=== PATIENT | male | born 1980 | race Caucasian/White ===

== ENCOUNTER → 2018-10-30 15:59 | Outpatient (CLI) | payer OTHER, SELFPAY ==
--- NOTE | 2018-10-30 | DI.RAD.S_ITS ---
PROCEDURE: XR FOOT LT MIN 3V INDICATIONS: left foot pain TECHNIQUE: 3 views of the foot were acquired. COMPARISON: None. FINDINGS: Bones: No fractures or dislocations. No suspicious bony lesions. Soft tissues: No tibiotalar joint effusion. Achilles tendon appears normal. IMPRESSION: Source of pain is not seen. Dictated by: Fermín Vital M.D. on 10/30/2018 at 17:05 Approved by: Fermín Vital M.D. on 10/30/2018 at 17:05
== END ==
PROVIDERS: PCP Internal Medicine; Visit Provider Family Medicine
DX: M79.672 Pain in left foot (principal)
CPT/HCPCS: 73630

== ENCOUNTER → 2021-01-23 15:04 | Outpatient (CLI) | payer OTHER, SELFPAY ==
[2021-01-23 16:25] LABS: COVID19 -Nasal RAPID Negative (Negative)
== END ==
PROVIDERS: PCP Internal Medicine; Visit Provider Nurse Practitioner
DX: Z20.822 Contact with and (suspected) exposure to COVID-19 (principal)
CPT/HCPCS: 87635

== ENCOUNTER → 2022-01-25 14:06 | Outpatient (CLI) | payer OTHER, SELFPAY ==
--- NOTE | 2022-01-25 14:11 | DI.RAD.S_ITS ---
PROCEDURE: XR TIBIA FIBULA LT 2V INDICATIONS: LEFT KNEE PAIN TECHNIQUE: 2 views of the tibia and fibula were acquired. COMPARISON: None. FINDINGS: Bones: No fractures or dislocations. No suspicious bony lesions. Soft tissues: No suspicious soft tissue calcifications or masses. IMPRESSION: Negative left tibia and fibula. Dictated by: Xu Whitfield M.D. on 01/25/2022 at 14:51 Approved by: Xu Whitfield M.D. on 01/25/2022 at 14:52
--- NOTE | 2022-01-25 14:11 | DI.RAD.S_ITS ---
PROCEDURE: XR KNEE LT 3V INDICATIONS: LEFT KNEE PAIN TECHNIQUE: 3 views of the knee were acquired. COMPARISON: None. FINDINGS: Bones: No fractures or dislocations. No suspicious bony lesions. Soft tissues: No joint effusion. No suspicious soft tissue calcifications. IMPRESSION: Negative left knee. Dictated by: Xu Whitfield M.D. on 01/25/2022 at 14:50 Approved by: Xu Whitfield M.D. on 01/25/2022 at 14:51
== END ==
PROVIDERS: PCP Family Medicine; Referring Provider Family Medicine; Visit Provider Family Medicine
DX: M25.562 Pain in left knee (principal)
CPT/HCPCS: 73562; 73590

== ENCOUNTER → 2022-10-04 16:34 | Outpatient (CLI) | payer OTHER, SELFPAY ==
--- NOTE | 2022-10-04 16:37 | DI.US.S_ITS ---
PROCEDURE: US ABDOMEN COMPLETE INDICATIONS: WEIGHT LOSS / HEPATITIS TECHNIQUE: Real-time scanning was performed of the abdominal and retroperitoneal organs, with image documentation. COMPARISON: [facility], US, ABDOMEN COMPLETE, 06/15/2017, 16:40. FINDINGS: Liver: The liver is at the upper limits of normal in size with enlarged caudate lobe and right hepatic lobe. Hepatic echotexture is moderately heterogeneous. No focal intrahepatic lesions identified. There is normal hepatopetal flow of the main portal vein. Gallbladder: There is mobile gallbladder sludge. No gallstones visualized. No gallbladder wall thickening. No pericholecystic fluid. Negative sonographic Regalado sign. Biliary ducts: Intrahepatic bile ducts are non-dilated. Extrahepatic bile duct caliber measures 4 mm. Normal is 6-7 mm or less in diameter, or 10 mm or less post-cholecystectomy. Pancreas: Pancreas is not well visualized secondary to moderate overlying bowel gas. However, there is a nonvascular hypoechoic lesion near the pancreatic head measuring 2.2 x 1.6 x 1.4 cm in size. Spleen: There is splenomegaly. Spleen measures 15.5 cm in length. Kidneys: Bilateral kidneys are normal in size with heterogeneous parenchymal echotexture. Right kidney measures 10.7 cm long and the left kidney measures 11.9 cm in length. No hydronephrosis or nephrolithiasis. No solid masses. Aorta: Visualized aorta is normal in caliber at less than 3 cm. Iliacs: Proximal common iliac arteries are not well visualized secondary to overlying bowel gas. IVC: Intrahepatic inferior vena cava is patent. Miscellaneous: There is a trace amount of ascites in the right upper quadrant. IMPRESSION: 1. Prominent size of the liver with very heterogeneous and increased parenchymal echotexture with enlargement of the caudate lobe and right hepatic lobe. No focal intrahepatic abnormality seen. There is also splenomegaly. Findings may represent possible hepatitis versus early cirrhosis/portal hypertension. Concurrent hepatic steatosis may have a similar appearance. 2. Possible 2.2 x 1.6 x 1.4 cm nonvascular hypoechoic lesion in the pancreatic head which may represent a mass. Recommend further evaluation with contrast enhanced MRI of the abdomen using pancreatic mass protocol. 3. Trace ascites. 4. Heterogeneous appearance of the renal parenchyma without evidence for obstructive uropathy. Findings are nonspecific but may represent sequela of chronic medical renal disease. Recommend clinical and laboratory correlation. Dictated by: Marco A Abraham M.D. on 10/05/2022 at 13:53 Approved by: Marco A Abraham M.D. on 10/05/2022 at 14:10
== END ==
PROVIDERS: PCP Family Medicine; Referring Provider Family Medicine; Visit Provider Family Medicine
DX: K75.9 Inflammatory liver disease, unspecified (principal); K82.8 Other specified diseases of gallbladder; R63.4 Abnormal weight loss; R16.1 Splenomegaly, not elsewhere classified
CPT/HCPCS: 76700

== ENCOUNTER → 2022-10-14 13:41 | Outpatient (CLI) | payer OTHER, SELFPAY ==
--- NOTE | 2022-10-14 | DI.MRI.S_ITS ---
PROCEDURE: MR AB PANCREATIC/MRCP PROTOCOL INDICATIONS: Other specified diseases of pancreas TECHNIQUE: Coronal HASTE through the abdomen, axial 2-D FLASH in- and [id number], and breath-hold T2 FSE with fat saturation through the biliary system and pancreas. Oblique coronal and axial thin-slice HASTE, radial thick-slab HASTE centered on the extrahepatic bile ducts. Intravenous secretin: Not requested. COMPARISON: [facility], US, US ABDOMEN COMPLETE, 10/04/2022, 17:06. FINDINGS: Image quality: Excellent. Liver: Macro lobulated liver contour. Heterogeneous signal dropout on the out of phase sequence, consistent with superimposed steatosis. Gallbladder and biliary tree: Diffuse gallbladder wall thickening. No intrahepatic or extrahepatic biliary dilation. Spleen: Enlarged. Pancreas: No ductal dilation. No solid mass. No cystic mass. Adrenal glands: No adrenal nodules. Kidneys: No hydronephrosis. No solid mass. No complex renal cysts which requires follow-up. . Nodes and vessels: No retroperitoneal or mesenteric adenopathy by size criteria. Aorta and inferior vena cava are normal in size. Prominent portacaval lymph nodes. Portosystemic collaterals. Bowel and peritoneum: Unenhanced bowel loops are normal in caliber. Small volume ascites. Lung bases: No basal pleural effusions. Heart size is normal. Bones and soft tissues: No ventral hernias. Bone marrow is of normal overall signal. IMPRESSION: No pancreatic mass. Findings on ultrasound could correspond to the prominent periportal lymph nodes. Cirrhosis with portal hypertension. Dictated by: Anil Johnston M.D. on 10/14/2022 at 15:20 Approved by: Anil Johnston M.D. on 10/14/2022 at 15:33
== END ==
PROVIDERS: PCP Family Medicine; Referring Provider Family Medicine; Visit Provider Family Medicine
DX: K86.89 Other specified diseases of pancreas (principal); K76.6 Portal hypertension; K74.60 Unspecified cirrhosis of liver; R16.1 Splenomegaly, not elsewhere classified; R10.9 Unspecified abdominal pain; R16.0 Hepatomegaly, not elsewhere classified; R63.4 Abnormal weight loss
CPT/HCPCS: 74183; A9579

== ENCOUNTER → 2022-11-12 14:55 | Outpatient (ROUT) | payer OTHER, SELFPAY ==
[2022-11-12 15:09] LABS: INR 1.8 (0.9-1.3); Prothrombin Time 20.5 SECONDS (10.1-12.7)
== END ==
PROVIDERS: PCP Family Medicine; Visit Provider Physician Assistant
DX: R74.8 Abnormal levels of other serum enzymes (principal); R93.2 Abnormal findings on diagnostic imaging of liver and biliary tract
CPT/HCPCS: 85610

== ENCOUNTER → 2023-04-01 07:12 | Outpatient (CLI) | payer OTHER, SELFPAY ==
--- NOTE | 2023-04-01 | DI.MRI.S_ITS ---
PROCEDURE: MR HEAD/BRAIN WO CON INDICATIONS: Nontraumatic intracerebral hemorrhage, unspecified TECHNIQUE: Noncontrast axial T1 spin echo, axial T2 fast spin echo, sagittal and axial FLAIR, coronal T2 fast spin echo, axial gradient echo, axial diffusion and ADC through the brain. COMPARISON: [facility], CT, CT HEAD WITHOUT CONTRAST, 03/04/2023, 13:00. FINDINGS: Image quality: Excellent. CSF Spaces: Basal cisterns are patent. No extra-axial fluid collections. Ventricles are normal in size and shape. Brain: The largest right frontal area of hemorrhage measures 4.6 x 2.4 x 3.9 centimeters, previously 5.0 x 2.6 x 4.4 centimeters. This cavity is predominantly cystic internally with hemosiderin lining, likely representing evolution of blood products. Redemonstration of surrounding edema. The smaller focus of hemorrhage within the right frontal lobe measures 1.1 x 0.6 x 1.2 centimeters, previously 2.0 x 1.1 x 1.7 centimeters. There is minimal surrounding edema, decreased from prior. The left cerebellar hemisphere hemorrhage measures 2.5 x 0.7 x 1.2 centimeters, previously 2.7 x 1.5 x 1.8 centimeters. There is decreased surrounding edema. All these lesions are predominantly cystic with a hemosiderin rim. Few scattered foci of T2/FLAIR hyperintense signal within the white matter is nonspecific and likely age-appropriate. Bhagat/white matter interface is normal. Brainstem appears normal. Diffusion-weighted images demonstrate no acute infarct. No chronic ischemic insults. Normal intravascular flow voids are present. Skull and face: Calvarium has normal marrow signal. Orbits appear normal. Sinuses: Mild diffuse paranasal sinus mucosal thickening. The mastoids are clear. IMPRESSION: Decreased size of intraparenchymal hemorrhages as described above with decreased surrounding edema. These areas are now predominantly cystic with hemosiderin rim. Findings likely represent evolving blood products. Mild subfalcine herniation related to the largest right frontal hemorrhage is similar to prior. No definite underlying mass is seen, however evaluation is limited without the use of intravenous contrast. Consider further evaluation with MRI of the brain with and without contrast once the hemorrhages are further resolved. No new acute intracranial abnormalities. No new hemorrhages. Dictated by: Eugenio Baxter M.D. on 04/01/2023 at 9:31 Approved by: Eugenio Baxter M.D. on 04/01/2023 at 9:44
== END ==
LOC: MRI 07:13
PROVIDERS: PCP Family Medicine; Referring Provider Family Medicine; Visit Provider Family Medicine
DX: I61.9 Nontraumatic intracerebral hemorrhage, unspecified (principal)
CPT/HCPCS: 70551

== ENCOUNTER → 2023-04-11 14:30 | Outpatient (CLI) | payer OTHER, SELFPAY ==
--- NOTE | 2023-04-11 | DI.RAD.S_ITS ---
PROCEDURE: XR ELBOW RT MIN 3V INDICATIONS: right elbow pain TECHNIQUE: 3 views of the elbow were acquired. COMPARISON: None. FINDINGS: Bones: No fractures or dislocations. No suspicious bony lesions. Soft tissues: No elbow joint effusion. No suspicious soft tissue calcifications. IMPRESSION: No acute bony abnormality or significant joint effusion. Dictated by: Anil Johnston M.D. on 04/11/2023 at 16:22 Approved by: Anil Johnston M.D. on 04/11/2023 at 16:22
== END ==
LOC: RAD 14:39
PROVIDERS: PCP Family Medicine; Referring Provider Family Medicine; Visit Provider Family Medicine
DX: M25.521 Pain in right elbow (principal)
CPT/HCPCS: 73080

== ENCOUNTER 2024-01-18 19:13 | Emergency (ER) | payer OTHER, SELFPAY ==
--- NOTE | 2024-01-18 19:15 | DI.RAD.S_ITS ---
PROCEDURE: XR ANKLE RT MIN 3V INDICATIONS: R ankle injuri, pain TECHNIQUE: 3 views of the ankle were acquired. COMPARISON: [facility], CR, XR TIBIA FIBULA LT 2V, 01/25/2022, 15:34. FINDINGS: Bones: Minimally displaced oblique intra-articular fracture of the medial malleolus. There is a small minimally displaced intra-articular fracture of the posterior malleolus. Minimally displaced oblique fracture of the distal fibula at the metadiaphysis. Ossification along the lateral aspect of the distal tibial metaphysis may be related to remote prior trauma versus osteochondroma. Soft tissues: Mild soft tissue edema surrounding the ankle. IMPRESSION: Minimally displaced trimalleolar fractures of the distal tibia and fibula. Approved by: Ivan Ahuja M.D. on 01/18/2024 at 19:43
[2024-01-18 19:23] VITALS: BP 154/78; PULSE 99; RESP 18; TEMP 37; O2SAT 99; BMI 23.6
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
[2024-01-18 19:30] VITALS: PULSE 95; O2SAT 99
[2024-01-18] MEDS: HYDROMORPHONE 1 MG INJ 0.5 MG IM (19:55)
[2024-01-18 20:00] VITALS: PULSE 89; RESP 18; O2SAT 100
[2024-01-18 20:22] VITALS: BP 143/75; PULSE 91; RESP 18; O2SAT 99
[2024-01-18] MEDS: HYDROCODONE/ACET 5/325 PREPACK 1 BOTTLE MISC (20:38)
== END 2024-01-18 20:49 | disposition home or self-care (01) ==
PROVIDERS: Emergency Provider Emergency Medicine; PCP Family Medicine
DX: S82.851A Displaced trimalleolar fracture of right lower leg, initial encounter for closed fracture (principal); V03.90XA Pedestrian on foot injured in collision with car, pick-up truck or van, unspecified whether traffic or nontraffic accident, initial encounter
CPT/HCPCS: 73610; 96372; 99283; J1171

== ENCOUNTER → 2024-01-20 09:01 | Outpatient (CLI) | payer OTHER, SELFPAY ==
[2024-01-20 10:03] LABS: INR 1.7 (0.9-1.3); Prothrombin Time 19.1 SECONDS (9.4-12.5)
[2024-01-20 10:06] LABS: PTT Partial Thromboplastin Tim 48 SECONDS (25.1-36.5)
[2024-01-20 12:35] LABS: Add Manual Diff / Slide Review NO; Basophils Absolute Auto 0 /uL (0-100); Basophils Percent Auto 0.9 % (0-2); Eosinophils Absolute Auto 0 /uL (0-450); Eosinophils Percent Auto 1.1 % (2-4); Hematocrit 34.5 % (41-53); Hemoglobin 11.6 g/dL (13.5-17.5); Lymphocytes Absolute Auto 900 /uL (1100-4500); Lymphocytes Percent Auto 32.3 % (25-40); Mean Corpuscular HGB Conc 33.5 % (30-36); Mean Corpuscular Hemoglobin 27.6 PG (26-34); Mean Corpuscular Volume 82.3 fL (80-100); Monocytes Absolute Auto 400 /uL (0-900); Monocytes Percent Auto 14.6 % (3-14); Neutrophils Absolute Auto 1400 /uL (1500-7000); Neutrophils Percent Auto 51.1 % (50-75); Platelet Count 71 X10^3/uL (150-400); Red Blood Cell Count 4.19 X10^6/uL (4.5-5.9); Red Cell Distribution Width 15.1 % (11.6-14.8); White Blood Cell Count 2.8 X10^3/uL (4.5-11.0)
== END ==
PROVIDERS: PCP Family Medicine; Referring Provider Orthopaedic Surgery; Visit Provider Orthopaedic Surgery
DX: D69.6 Thrombocytopenia, unspecified (principal); D68.00 Von Willebrand disease, unspecified
CPT/HCPCS: 36415; 85025; 85610; 85730; 86900; 86901

== ENCOUNTER 2024-01-20 09:54 | Emergency (ER) | payer OTHER, SELFPAY ==
[2024-01-20 10:14] VITALS: BP 148/65; PULSE 94; RESP 17; TEMP 36.6; O2SAT 100; BMI 23.6
--- NOTE | 2024-01-20 10:59 | ED_ITS ---
HPI - Recheck/Abnormal Lab/Rx <Monika Almeida PA-C - Last Filed: 01/20/24 13:41> General Chief Complaint: Recheck/Abnormal Lab/Rx Stated Complaint: foot fracture needs pain meds refill Time Seen by Provider: 01/20/24 10:42 Source: patient Mode of arrival: Ambulatory History of Present Illness HPI narrative: Mr. Gallardo is a pleasant 43-year-old male with a past medical history of right ankle trimalleolar fracture of the distal tibia and fibula on 01/18/2024 who presents for continuing pain in his right ankle. Patient has surgery scheduled on Tuesday. He was prescribed 14 hydrocodone-acetaminophen 5-325mg tablets and he still has 8 remaining but he reports taking 1 tablet every 6 hours has not been controlling his pain. He wanted to discuss additional pain medication in order to get him through his surgery on Tuesday. He denies any new injuries, any knee pain any fevers, chills, shortness of breath or decreased sensation of his foot. Related Data Previous Rx's Medication Instructions Recorded hydrocodone 5 mg-acetaminophen 325 1 tab PO Q6H PRN pain #14 tabs 01/18/24 mg tablet cephalexin 500 mg capsule 500 mg PO TID 7 days #21 caps 01/20/24 hydrocodone 5 mg-acetaminophen 325 1 tab PO Q6H PRN pain #16 tabs 01/20/24 mg tablet Allergies Allergy/AdvReac Type Severity Reaction Status Date / Time No Known Drug Allergies Allergy Verified 01/20/24 10:17 Review of Systems <Monika Almeida PA-C - Last Filed: 01/20/24 13:41> Constitutional Constitutional: Denies chills, Denies fatigue, Denies frequent falls and Denies weakness ENT Ears, Nose, Mouth, and Throat: Denies neck pain Cardiovascular Cardiovascular: Denies chest pain, Denies dyspnea and Denies dyspnea on exertion Respiratory Respiratory: Denies cough, Denies dyspnea and Denies dyspnea on exertion Gastrointestinal Gastrointestinal: Denies nausea and Denies vomiting Musculoskeletal Musculoskeletal: Denies back pain, Denies myalgias, Reports arthralgias (right ankle pain) and Denies neck pain Integumentary/Breasts Skin/Breast: Denies rash Neurologic Neurologic: Denies frequent falls and Denies weakness Endocrine Endocrine: Denies fatigue Patient History <Monika Almeida PA-C - Last Filed: 01/20/24 13:41> Social History Smoking Status: Never smoker Smoking Status: Never smoker Substance Use Type: does not use Exam <Monika Almeida PA-C - Last Filed: 01/20/24 13:41> Initial Vital Signs Initial Vital Signs: Vital Signs Temperature 98 F 01/20/24 10:14 Pulse Rate 94 H 01/20/24 10:14 Respiratory Rate 17 01/20/24 10:14 Blood Pressure 148/65 H 01/20/24 10:14 Pulse Oximetry 100 01/20/24 10:14 Oxygen Delivery Method Room Air 01/20/24 10:14 Const General: cooperative HENMT Head: normocephalic Neck Neck: normal visual inspection Resp Effort & Inspection: normal respiratory effort, able to speak in complete sentences and no respiratory distress Cardio Rate: regular rate Rhythm: regular rhythm Skin General: No jaundice and No petechiae Other: Small, superficial abrasion on right lateral malleolus. Brisk capillary refill on right foot. Neuro General: patient alert and patient oriented x3 Extrem General: capillary refill normal, no calf tenderness and No calf tenderness Right lower extremity: normal capillary refill Other: Right lower leg splint removed. Compartments soft. Superficial abrasion on right lateral malleolus. Diffuse TTP right ankle. Psych Appearance: well kempt <Camila Melgoza DO - Last Filed: 01/20/24 16:04> Initial Vital Signs Initial Vital Signs: Vital Signs Temperature 98 F 01/20/24 10:14 Pulse Rate 94 H 01/20/24 10:14 Respiratory Rate 17 01/20/24 10:14 Blood Pressure 148/65 H 01/20/24 10:14 Pulse Oximetry 100 01/20/24 10:14 Oxygen Delivery Method Room Air 01/20/24 10:14 Course <Monika Almeida PA-C - Last Filed: 01/20/24 13:41> Vital Signs Vital signs: Vital Signs - 8 hr 01/20/24 10:14 01/20/24 11:39 Temperature 98 F Pulse Rate 94 H 76 Respiratory Rate 17 18 Blood Pressure 148/65 H 127/61 Pulse Oximetry 100 98 Oxygen Delivery Method Room Air Room Air <Camila Melgoza DO - Last Filed: 01/20/24 16:04> Vital Signs Vital signs: Vital Signs - 8 hr 01/20/24 10:14 01/20/24 11:39 Temperature 98 F Pulse Rate 94 H 76 Respiratory Rate 17 18 Blood Pressure 148/65 H 127/61 Pulse Oximetry 100 98 Oxygen Delivery Method Room Air Room Air MDM - Recheck/Abnormal Lab/Rx <Monika Almeida PA-C - Last Filed: 01/20/24 13:41> [facility] Narrative Medical decision making narrative: 43-year-old male with a past medical history of right ankle trimalleolar fracture of the distal tibia and fibula on 01/18/2024 who presents for continuing pain in his right ankle. DDX includes but is not limited to uncontrolled fracture pain, cellulitis, compartment syndrome, etc. On exam patient is in no acute distress, nontoxic appearing, afebrile. Splint removed to evaluate leg. Right lower extremity compartments are soft, distal right toes have brisk capillary refill and sensation intact to light touch. Superficial abrasion on R lat mal. Patient has been taking 5 mg of hydrocodone every 6 hours however his pain has not been controlled. He has 8 pills remaining but was concerned he would not have enough pain medication to get him to a surgery on Tuesday and he was unable to get appointment with his PCP. I discussed multimodal pain management with the patient including incorporating additional Tylenol and ibuprofen. I prescribed him additional hydrocodone 5 mg and we discussed that he can take a total of 10 mg hydrocodone every 6 hours if needed for pain. Discussed risks of narcotic pain medications. Due to superficial abrasion overlying fracture underneath the splint, will treat with Keflex t.i.d. x7 days out of an abundance of caution for potential wound infection. A new splint was applied. Patient is understanding, agreeable to discharge and stable for discharge home with surgery scheduled Tuesday. Strict ED return precautions discussed. Discharge Plan Departure Patient Disposition: Home Clinical Impression: Ankle fracture, right Qualifiers: Encounter type: subsequent encounter Fracture type: closed Fracture healing: with routine healing Qualified Code(s): S82.891D - Other fracture of right lower leg, subsequent encounter for closed fracture with routine healing Ankle pain, right Qualifiers: Chronicity: acute Qualified Code(s): M25.571 - Pain in right ankle and joints of right foot Instructions: DI for Ankle Pain Activity Restrictions/Additional Instructions: Today you were evaluated in the emergency department for continuing right ankle pain. I have prescribed 16 additional tablets of hydrocodone so that you have enough to get to your surgery on Tuesday. If the 5 mg tablet does not improve your pain, you may take an additional 5 mg tablet for a total of 10 mg every 6 hours. It is also appropriate to incorporate additional Tylenol/acetaminophen. You may take a total of 1000 mg of Tylenol every 8 hours. You may also take 600 mg of ibuprofen every 6 hours, however you may want to confirm with your surgeon as this is appropriate prior to her operation on Tuesday. Please continue to rest, ice her ankle, elevate the ankle above the heart. Use your crutches do not bear weight on the ankle. Returns to the emergency depart for any new or worsening symptoms. You have been prescribed a short course of narcotic medications. These are potentially dangerous and addictive medications that should be used carefully. While on these medications you cannot drive or operate heavy machinery. Additionally, you cannot sign legal documents or perform any duties such as this. 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 Please understand that we cannot provide further refills of narcotics or controlled substances through the ED and your pain management will need to be through your Primary Care Provider Prescriptions: New hydrocodone-acetaminophen 5-325 mg tablet 1 tab PO Q6H PRN (Reason: pain) Qty: 16 0RF Rx Instructions: You may take an addition tablet (total 10mg of hydrocodone) every 6 hours as needed for severe pain. cephalexin 500 mg capsule 500 mg PO TID 7 Days Qty: 21 0RF No Action hydrocodone-acetaminophen 5-325 mg tablet 1 tab PO Q6H PRN (Reason: pain) Qty: 14 0RF Referrals: Alex Caruso MD [Primary Care Provider] - Stand Alone Forms: Patient Portal/API/Survey, Work Release Note ED Sign-out <Camila Melgoza DO - Last Filed: 01/20/24 16:04> Cosign ED Attending Cosmargaretature Attestation: I was available for consultation.
[2024-01-20 11:39] VITALS: BP 127/61; PULSE 76; RESP 18; O2SAT 98
--- NOTE | 2024-01-20 12:27 | PC.NURSE ---
[id number] I went to DC the patient and he states he is having burning pain to the top of right foot. I removed the splint including the padding as it was very tight and the swelling to his right leg had increased since Tuesday. He reports this completely removed the pain he had described. While removing the padding I noted some dried yellow drainage to the lateral portion of the ankle and a wound which was 0.25cm in size. As this was the area of the fracture I brought it to the attention of provider Juan Pablo for concern regarding a possible open fracture. His leg is hot to the touch and very swollen. There is some redness to the top of the foot where he had stated it was burning but it is unclear if this discoloration is simply from the fact that the splint was tight on the skin. I reapplied the splint more loosely and patient states the burning pain has not returned. Antibiotics to be ordered for the patient to cover for the potential of an open fracture.
== END 2024-01-20 11:55 | disposition home or self-care (01) ==
PROVIDERS: Emergency Provider Physician Assistant; PCP Family Medicine
DX: S82.851D Displaced trimalleolar fracture of right lower leg, subsequent encounter for closed fracture with routine healing (principal); M25.571 Pain in right ankle and joints of right foot; D69.6 Thrombocytopenia, unspecified; D68.00 Von Willebrand disease, unspecified
CPT/HCPCS: 36415; 85025; 85610; 85730; 86900; 86901; 99281

== ENCOUNTER → 2024-02-13 14:23 | Outpatient (CLI) | payer OTHER, SELFPAY ==
[2024-02-13 14:48] LABS: Add Manual Diff / Slide Review NO; Basophils Absolute Auto 0 /uL (0-100); Eosinophils Absolute Auto 0 /uL (0-450); Eosinophils Percent Auto 1.1 % (2-4); Hematocrit 34.1 % (41-53); Hemoglobin 11.1 g/dL (13.5-17.5); Lymphocytes Absolute Auto 1300 /uL (1100-4500); Lymphocytes Percent Auto 40.6 % (25-40); Mean Corpuscular HGB Conc 32.6 % (30-36); Mean Corpuscular Hemoglobin 27.3 PG (26-34); Mean Corpuscular Volume 83.6 fL (80-100); Monocytes Absolute Auto 400 /uL (0-900); Neutrophils Absolute Auto 1500 /uL (1500-7000); Neutrophils Percent Auto 46.3 % (50-75); Platelet Count 101 X10^3/uL (150-400); Red Blood Cell Count 4.07 X10^6/uL (4.5-5.9); Red Cell Distribution Width 15.5 % (11.6-14.8); White Blood Cell Count 3.3 X10^3/uL (4.5-11.0)
== END ==
PROVIDERS: PCP Family Medicine; Referring Provider Orthopaedic Surgery Foot and Ankle Surgery; Visit Provider Orthopaedic Surgery Foot and Ankle Surgery
DX: D69.6 Thrombocytopenia, unspecified (principal)
CPT/HCPCS: 36415; 85025

== ENCOUNTER → 2024-08-09 07:12 | Outpatient (CLI) | payer OTHER, SELFPAY ==
--- NOTE | 2024-08-09 07:13 | DI.MRI.S_ITS ---
PROCEDURE: MR ABDOMEN WO/W CON INDICATIONS: cirrhosis of liver TECHNIQUE: Coronal HASTE, axial 2D FLASH in- and [id number]; axial breath-hold T2 FSE. Dynamic axial VIBE during the administration of contrast; post-contrast coronal VIBE or 2D FLASH with fat saturation from the hepatic dome to the iliac crests. Optional diffusion weighted imaging and ADC may be performed. COMPARISON: [facility], CT, CT ABDOMEN PELVIS WITH CONTRAST, 05/27/2023, 15:56. FINDINGS: Image quality: Diagnostic. Lung bases: Unremarkable. Liver: Heterogeneous intensity of the liver, with suspected early fibrotic change. There is a macro lobulated liver contour. Patent portal vein. No observations probably or definitely HCC. Gallbladder: Cholelithiasis without wall thickening or adjacent fat stranding to suggest acute cholecystitis. Biliary ducts: No biliary dilation. Pancreas: No ductal dilation. Spleen: Size is enlarged. Adrenal Glands: No adrenal nodules. Kidneys and Ureters: No hydronephrosis. No solid mass. No complex renal cystic lesion which requires follow up. Stomach and Bowel: Normal colonic caliber, without significant wall thickening. Peritoneum: Small volume ascites. Ventral Wall: No hernia. Abdominal Nodes: No retroperitoneal or mesenteric adenopathy by size criteria. Vessels: Aorta and inferior vena cava are normal in size. Portosystemic collaterals, including paraesophageal varices. Bones: No aggressive osseous abnormality. IMPRESSION: Cirrhosis. No observations of probably or definitely HCC. Portal hypertension, with large paraesophageal varices and splenomegaly. Dictated by: Anil Johnston M.D. on 08/09/2024 at 10:14 Approved by: Anil Johnston M.D. on 08/09/2024 at 10:20
== END ==
PROVIDERS: PCP Family Medicine; Referring Provider Family Medicine; Visit Provider Family Medicine
DX: K74.69 Other cirrhosis of liver (principal); K76.6 Portal hypertension; I85.10 Secondary esophageal varices without bleeding
CPT/HCPCS: 74183; A9579